=== PATIENT | female | born 1985 | race Caucasian/White ===

== ENCOUNTER 2017-10-22 17:48 | Inpatient (IN) | payer BC ==
[~2017-10-22] VITALS: Ht 177.8 cm; Wt 94.1 kg
[2017-11-14] VITALS (23 sets, daily range): BP systolic 106–131; BP diastolic 47–82; PULSE 54–86; TEMP 97.7–98.7
[2017-11-14] MEDS ORDERED: PRENATAL MVI (07:35)
[2017-11-14 08:56] LABS: BASO # 0.1 (0.0-0.2); BASO % 0.5 % (0.0-2.0); EOS # 0.1 (0.0-0.7); EOS % 0.5 % (0-4.0); GRAN # 8.2 (1.4-6.5); GRAN % 78.2 % (42.2-75.2); HEMOGLOBIN 12.4 g/dl (12.5-16.0); LYMPH # 1.4 (1.2-3.4); LYMPH % 13.5 % (20.0-51.0); MEAN CELL VOLUME 94 fl (80.0-100.0); MEAN CORPUSCULAR HEMOGLOBIN 32 pg (27.0-31.0); MEAN CORPUSCULAR HGB CONC 34 g/dl (33.0-37.0); MEAN PLATELET VOLUME 12.5 fl (7.4-10.4); MONO # 0.6 (0.1-0.6); PLATELET COUNT 202 K/mm3 (130-400); RED BLOOD COUNT 3.93 M/mm3 (4.10-5.30); REDCELL DISTRIBUTION WIDTH-CV 13.1 % (11.5-14.5)
[2017-11-14 08:57] LABS: HEMATOCRIT 36.9 % (37.0-47.0)
[2017-11-14] MEDS ORDERED: PERCOCET 325 MG1 TA2 PO (23:40)
[2017-11-14] MEDS ORDERED: MOTRIN 800800 MG/TAB PO (23:40)
[2017-11-15 04:30] VITALS: BP 118/61; PULSE 70; TEMP 98.3
[2017-11-15 06:12] LABS: HEMATOCRIT 35.2 % (37.0-47.0); HEMOGLOBIN 11.6 g/dl (12.5-16.0)
[2017-11-15] MEDS ORDERED: BREASTPUMP MC (09:34)
[2017-11-15 16:05] VITALS: BP 120/76; PULSE 70; TEMP 98.5
[2017-11-15 20:20] VITALS: BP 116/55; PULSE 76; TEMP 98.5
[2017-11-16 06:50] VITALS: BP 124/65; PULSE 72; TEMP 98.8
== END 2017-11-16 15:00 | disposition home or self-care (01) | DRG 765 ==
LOC: EDSTATUS 11-06 06:34 → LDRO 11-06 17:47 → LDR 11-14 06:35 → OB 11-14 07:05 → LDR 11-14 07:05 → OB 11-14 11:00
PROVIDERS: Obstetrics & Gynecology
PROC: 10D00Z1 Extraction of Products of Conception, Low, Open Approach (ICD-10-PCS; principal; 2017-11-14)
DX: O48.0 Post-term pregnancy (principal); O99.354 Diseases of the nervous system complicating childbirth; G93.2 Benign intracranial hypertension; O32.1XX0 Maternal care for breech presentation, not applicable or unspecified; Z3A.41 41 weeks gestation of pregnancy; Z37.0 Single live birth
CPT/HCPCS: J0690; J1885; J2270; J2370; J2405; J2590; J2765; J7120

== ENCOUNTER → 2020-09-07 | Outpatient (CLI) | payer BC ==
[~2020-09-07] MED LIST: BREASTPUMP MC; MOTRIN 800800 MG/TAB PO; PERCOCET 325 MG1 TA2 PO; PRENATAL MVI
== END | disposition still patient (30) ==
LOC: ZCOL.LAB 08:00
DX: Z20.828 Contact with and (suspected) exposure to other viral communicable diseases (principal)